=== PATIENT | male | born 1965 | race Hispanic/Latino ===

== ENCOUNTER 2020-02-20 01:51 | Emergency (ER) | payer OTHER ==
[~2020-02-20 01:51] MED LIST: GLIP5TAB11 PO; INSLAN SQ; immodium PO
[2020-02-20 02:37] LABS: BASOPHILS % (AUTO) 0.3 % (0.0-5.0); EOSINOPHILS % (AUTO) 2.7 % (0.0-8.0); MEAN CORPUSCULAR HEMOGLOBIN 27.1 pg (27.0-33.0); MEAN CORPUSCULAR VOLUME 79.8 fL (79-99); MONOCYTES % (AUTO) 8.9 % (3.0-13.0); NEUTROPHILS % (AUTO) 59.8 % (40.0-77.0); PLATELET COUNT (AUTO) 247 K/uL (130-400); RED BLOOD CELL COUNT(AUTO) 3.76 MIL/uL (4.50-6.20); RED CELL DISTRIBUTION WIDTH 13.4 % (11.0-15.5); WHITE BLOOD COUNT (AUTO) 9.4 K/uL (4.8-10.8)
[2020-02-20 02:48] LABS: CARBON DIOXIDE 26 mmol/L (21-32); CHLORIDE 105 mmol/L (101-111); CREATININE 1.1 mg/dL (0.5-1.5); GLOMERULAR FILTR. RATE CALC 74 mL/min (>60); GLUCOSE,RANDOM 131 mg/dL (70-105); POTASSIUM 3.4 mmol/L (3.5-5.1); SODIUM SERUM 138 mmol/L (136-145); UREA NITROGEN, BLOOD 21 mg/dL (7-18)
[2020-02-20 02:52] LABS: ALANINE AMINOTRANSFERASE 28 U/L (12-78); ALBUMIN 2.7 g/dL (3.5-5.0); ALCOHOL, BLOOD < 3 mg/dL (0-10); ASPARTATE AMINOTRANSFERASE 21 U/L (10-37); BILIRUBIN,TOTAL 0.2 mg/dL (0.2-1.0); CREATINE KINASE, TOTAL 147 U/L (21-232); TOTAL PROTEIN, SERUM 6.6 g/dL (6.0-8.3)
[2020-02-20 03:01] LABS: ACETAMINOPHEN < 1 mcg/mL (10-29); SALICYLATE < 2.8 mg/dL (2.8-20.0)
[2020-02-20 03:05] LABS: APPEARANCE,URINE Clear (CLEAR); BILIRUBIN,URINE Negative (NEGATIVE); COLOR,URINE Yellow (YELLOW); GLUCOSE, URINE (UA) >=1000 mg/dL (NEGATIVE); KETONES,URINE Trace mg/dL (NEGATIVE); LEUKOCYTE ESTERASE ,URINE Trace (NEGATIVE); NITRATE,URINE Negative (NEGATIVE); OCCULT BLOOD,URINE Small (NEGATIVE); PROTEIN,URINE >=1000 mg/dL (NEGATIVE)
[2020-02-20 03:12] LABS: AMPHET/METH SCREEN,URINE NEGATIVE (NEGATIVE); BARBITURATE SCREEN, URINE NEGATIVE (NEGATIVE); BENZODIAZEPINES SCREEN,URINE NEGATIVE (NEGATIVE); CANNABINOID SCREEN,URINE NEGATIVE (NEGATIVE); COCAINE SCREEN,URINE NEGATIVE (NEGATIVE); OPIATE SCREEN,URINE NEGATIVE (NEGATIVE); PHENCYCLIDINE SCREEN,URINE NEGATIVE (NEGATIVE)
[2020-02-20] MEDS ORDERED: TETANUS/DIPHTHERIA TOXOID [ADULT] 0.5 ML VIAL IM ONE (03:16)
[2020-02-20 04:14] LABS: BACTERIA,URINE Few /HPF (None Seen); MUCUS,URINE Moderate LPF (None Seen); RBC,URINE 0-1 /HPF (0-1); SQUAMOUS EPITHELIAL CELL,UR Moderate /HPF (0-2)
== END 2020-02-20 05:54 | disposition home or self-care (01) ==
LOC: EDH 01:51
DX: T23.102A Burn of first degree of left hand, unspecified site, initial encounter (principal); E11.65 Type 2 diabetes mellitus with hyperglycemia; E11.621 Type 2 diabetes mellitus with foot ulcer; L97.529 Non-pressure chronic ulcer of other part of left foot with unspecified severity; R45.851 Suicidal ideations; T31.0 Burns involving less than 10% of body surface; Z98.890 Other specified postprocedural states; X19.XXXA Contact with other heat and hot substances, initial encounter; Y93.89 Activity, other specified; Y92.89 Other specified places as the place of occurrence of the external cause; Y99.8 Other external cause status
CPT/HCPCS: 36415; 80053; 80305; 81001; 82550; 84484; 85025; 90471; 90714; 93005; 99284; G0481